=== PATIENT | male | born 1995 | race Two or more races ===

== ENCOUNTER 2018-09-03 23:24 | Emergency (ER) | payer SELFPAY ==
[~2018-09-03] VITALS: Ht 190.5 cm; Wt 79.4 kg
[2018-09-03] MEDS ORDERED: PREDNISONE20 MG ORAL (23:48)
[2018-09-03] MEDS ORDERED: CLARITIN-D 121 EAC1 ORAL (23:48)
--- NOTE | 2018-09-03 23:50 | NUR ---
ED Nurse Note: pt walked in c/o dry cough and chest pain when coughing x 2 wks. Pt AA&ox4, gcs=15, skin warm and dry, resp even and unlabored on RA, LS=clear, will cont monitor. no cough noted at this time.
[2018-09-03] MEDS ORDERED: TUSSIN DM PO (23:52)
[2018-09-03 23:57] VITALS: BP 136/84
--- NOTE | 2018-09-03 23:58 | NUR ---
ED Nurse Note: pt cleared to be d/c per ER provider, pt discharge and aftercare instruction provided w/ prescription, pt education done via discussion and handout, pt advised to follow up with pcp or return to ed if sx worsen or new sx develop, pt verbalized understanding and agrees with plan, vss, ambulatory w/steady gait, left w/ all belongings.
--- NOTE | 2018-09-04 02:37 | Emergency Room Report ---
History of Present Illness General Chief Complaint: Upper Respiratory Illness Source: Patient Present Illness HPI Patient is a 23-year-old male presented after increased cough. Patient reports having increased nonproductive cough. He reports having recent use of a Z-Shabbir. He states he had previously been told he was allergic to guaifenesin. He reports having some prior reactions to dextromethorphan. Patient states has been having increased cough worse at night. He reports having recent blood test as well as a recent chest x-ray which was negative. He denies being a smoker. Allergies: Coded Allergies: GUAIFENESIN (Verified Allergy, Unknown, 09/03/18) IBUPROFEN (Verified Allergy, Unknown, 09/03/18) Patient History Past Medical History: see triage record Reviewed Nursing Documentation: PMH: Agreed; PSxH: Agreed Nursing Documentation-PMH Past Medical History: No Stated History Review of Systems All Other Systems: negative except mentioned in HPI Physical Exam Vital Signs Date Time Temp Pulse Resp B/P (MAP) Pulse Ox O2 Delivery O2 Flow Rate FiO2 09/03/18 23:31 98.4 76 16 136/84 95 Room Air General Appearance: well appearing, no apparent distress, alert, GCS 15 Head: normocephalic, atraumatic ENT: hearing grossly normal, normal voice Neck: full range of motion, supple Respiratory: no respiratory distress, speaking full sentences, wheezing Musculoskeletal: no calf tenderness Neurologic: normal gait Psychiatric: mood/affect normal Skin: no rash Medical Decision Making Diagnostic Impression: Primary Impression: Bronchitis ER Course Patient presented for cough. Differential diagnosis included but was not limited to bronchitis, pneumonia, pulmonary embolism, pericarditis, asthma, foreign body. Patient has a benign exam and does not appear to require any further imaging or laboratory testing at this time. Patient reports having allergy to guaifenesin initially. Patient was given prescription for prednisone as well as chlorphenermine DM. He subsequently stated he was allergic to dextromethorphan. Patient was advised to use [id number] cough medications if that was the case and not to fill reduction with ORIF and DM containing cough medication.Patient's does not appear to have significant amount of coughing while in the emergency department. He was given prescription for oral prednisone due to some bronchospasm.Patient specifically requested codeine-containing cough syrup. I do not feel that this is indicated. Last Vital Signs Date Time Temp Pulse Resp B/P (MAP) Pulse Ox O2 Delivery O2 Flow Rate FiO2 09/03/18 23:57 98.4 76 16 136/84 95 Room Air Status: improved Disposition: HOME, SELF-CARE Condition: Stable Scripts Chlorpheniramine/Dextromethorp (Scot-Tussin Dm Liquid) 118 Ml Liquid 118 ML PO EVERY 6 HOURS, #118 ML Prov: Thomas Verdugo MD 09/03/18 Prednisone* (PREDNISONE*) 20 Mg Tablet 40 MG ORAL DAILY, #10 TAB Prov: Thomas Verdugo MD 09/03/18 Referrals: NOT CHOSEN IPA/,REFERRING (PCP) Patient Instructions: Cough, Adult Thomas Verdugo MD Sep 04, 2018 02:37
== END 2018-09-03 23:57 | disposition home or self-care (01) ==
LOC: EMR 23:44
DX: J20.9 Acute bronchitis, unspecified (principal); Z88.8 Allergy status to other drugs, medicaments and biological substances
CPT/HCPCS: 99282